=== PATIENT | female | born 1985 | race Caucasian/White ===

== ENCOUNTER 2018-05-11 03:29 | Observation (INO) ==
[2018-05-11] MEDS ORDERED: IOPAMIDOL 100 ML BOTTLE IV ONE (03:30)
[2018-05-11] MEDS ORDERED: 0.9 % SODIUM CHLORIDE 1,000 ML IV ONE ×3 (03:45→14:10)
[2018-05-11] MEDS ORDERED: ONDANSETRON 4 MG/2 ML VIAL IV ONE ×2 (03:46→09:32)
--- NOTE | 2018-05-11 04:10 | Emergency Department Note ---
Abdominal Pain HPI - General Chief Complaint: Abdominal Pain Stated Complaint: Nausea, Sharp abdominal pain Time Seen by Provider: 05/11/18 04:07 Source: patient Mode of arrival: ambulatory Limitations: no limitations - History of Present Illness HPI Narrative: 32-year-old female with nausea vomiting and diarrhea since 8 PM on Friday or about 8 hours now total. She is having cramps with that. She is having low- grade temperature elevation last 2 days as well-however she had a orthopedic surgery 5 days ago and she was instructed not to call it a fever last it reached over 100.4-her right arm is in a cast from the ganglion cyst removal. She thinks there was some dark red blood in her stool she does have a history of a hemorrhoid since her last that is intermittent. Symptoms came on after eating some stirfry dinner at home however her kids ate the same meal and no one else is sick. - Related Data Home Medications Medication Instructions Recorded Confirmed Aspirin [Lite Coat Aspirin] 325 mg PO DAILY 05/11/18 05/11/18 Allergies Allergy/AdvReac Type Severity Reaction Status Date / Time No Known Drug Allergies Allergy Verified 05/11/18 03:37 Review of Systems All systems ED: reviewed and negative except as stated. Abdominal Pain PMH - Past Medical History Attestation: Yes: The following information was validated with the patient. Medical history: Reports: other (Factor V Leiden) Surgical history ED: Reports: (X2), orthopedic, other (Ganglion cyst) , tonsillectomy - Social History Smoking status: Never smoker Physical Exam No acute distress resting. Normocephalic atraumatic. Conjunctive are clear sclerae nonicteric. No nasal discharge or congestion. Oropharynx pink and moist. Neck is supple without lymphadenopathy or thyromegaly. Heart is regular rate and rhythm no murmur. Lungs are clear to auscultation bilaterally without wheezes rales rhonchi or respiratory distress. Abdomen is soft flat diffusely tender. Exam of the rectum shows a small skin tag but no active hemorrhoid. Hemoccult negative no stool in the vault. no pedal edema. Alert and oriented She did have an episode of diarrhea so I looked in the toilet after she was done and there was a large amount of blood clots in watery stool Limitations: no limitations Course Vital Signs Temperature 98.4 F 05/11/18 03:30 Pulse Rate 82 05/11/18 03:30 Respiratory Rate 18 05/11/18 03:30 Blood Pressure 117/84 05/11/18 03:30 Pulse Oximetry (%) 100 05/11/18 03:30 Temperature 98.4 F 05/11/18 03:30 Pulse Rate 102 H 05/11/18 06:30 Respiratory Rate 18 05/11/18 03:30 Blood Pressure 112/76 05/11/18 08:29 Pulse Oximetry (%) 99 05/11/18 06:30 Abdominal Pain - Lab Data Lab results reviewed: Yes I reviewed the patient's lab results. Result diagrams: 05/11/18 03:45 05/11/18 03:45 Lab Results 05/11/18 05/11/18 Range/Units 03:45 03:45 WBC 12.0 H (4.5-11.0) K/mcL RBC 5.29 H (4.00-5.20) M/mcL Hgb 15.4 H (12.0-15.0) g/dL Hct 46.1 (36.0-48.0) % MCV 87.1 (80.0-100.0) fL MCH 29.1 (26.0-34.0) pg MCHC 33.4 (31.0-36.0) g/dL RDW 11.7 (11.5-14.5) % Plt Count 225 (140-440) K/mcL MPV 8.4 (7.4-10.4) fL Gran % 89.2 H (38.0-78.0) % Lymph % (Auto) 5.9 L (15.5-49.0) % [place] % (Auto) 4.1 (1.0-12.0) % Eos % (Auto) 0.6 (0.0-7.0) % Baso % (Auto) 0.2 (0.0-2.0) % Gran # 10.7 H (1.8-8.0) K/mcL Lymph # (Auto) 0.7 L (1.5-4.8) K/mcL [place] # (Auto) 0.5 (0.1-0.9) K/mcL Eos # (Auto) 0.1 (0.0-0.7) K/mcL Baso # (Auto) 0 (0.0-0.3) K/mcL Sodium 136 (133-145) mmol/L Potassium 4.0 (3.3-5.1) mmol/L Chloride 97 (96-108) mmol/L Carbon Dioxide 24 (22-30) mmol/L Anion Gap 15.0 (8-16) BUN 20 (6-20) mg/dl Creatinine 0.7 (0.6-1.1) mg/dl GFR Calculation 113 Glucose 137 H (70-105) mg/dL Calcium 9.6 (8.6-10.4) mg/dl Total Bilirubin 0.5 (0.0-1.0) mg/dL AST 24 (0-37) U/l ALT 35 (0-40) U/l Alkaline Phosphatase 68 (39-117) U/L Total Protein 8.3 (5.9-8.4) gm/dL Albumin 4.7 (3.2-5.2) gm/dL Globulin 3.6 (2.2-3.7) gm/dL Albumin/Globulin Ratio 1.3 (1.0-2.3) Lipase 31 (7-60) U/L - Radiology Data Radiology results reviewed: Yes I reviewed the patient's radiology results. Abdominal x-ray series showed no acute findings. Nonspecific bowel gas pattern CT scan of the abdomen pelvis is pending Disposition Pt seen by RECRUITER SPECIALIST/PA only: No Clinical Impression: Hematochezia, Gastroenteritis Summary: Initially was felt that she might have food poisoning versus gastroenteritis so supportive care was initiated with Zofran IV fluids and workup started with laboratory and 2 views of the abdomen Laboratory showed leukocytosis. No major electrolyte issues . abdominal x-ray showed nonspecific bowel gas pattern. Patient then had an episode of hematochezia here and so CT scan of abdomen pelvis angiogram is ordered Given Dilaudid for pain/cramping. She continued to have nausea so Phenergan is given but this did not help. Will give dose of Reglan Shift change came patient is checked out to Dr. Romero for further care and evaluation Disposition: Still a Patient Condition: Fair Referrals: Alberta Rubio MD [Primary Care Provider] -
[2018-05-11 05:01] LABS: ALT/SGPT 35 U/l (0-40); Albumin 4.7 gm/dL (3.2-5.2); Albumin/Globulin Ratio 1.3 (1.0-2.3); Alkaline Phosphatase 68 U/L (39-117); Blood Urea Nitrogen 20 mg/dl (6-20); Lipase 31 U/L (7-60)
[2018-05-11 06:01] LABS: Basophils # (Auto) 0 K/mcL (0.0-0.3); Basophils % (Auto) 0.2 % (0.0-2.0); Eosinophils # (Auto) 0.1 K/mcL (0.0-0.7); Eosinophils % (Auto) 0.6 % (0.0-7.0); Granulocytes % (Auto) 89.2 % (38.0-78.0); Lymphocytes # (Auto) 0.7 K/mcL (1.5-4.8); Lymphocytes % (Auto) 5.9 % (15.5-49.0); Mean Cell Volume 87.1 fL (80.0-100.0); Mean Corpuscular HGB Conc 33.4 g/dL (31.0-36.0); Mean Corpuscular Hemoglobin 29.1 pg (26.0-34.0); Monocytes # (Auto) 0.5 K/mcL (0.1-0.9); Monocytes % (Auto) 4.1 % (1.0-12.0); Platelet Count 225 K/mcL (140-440); RBC 5.29 M/mcL (4.00-5.20); Red Cell Distribution Width 11.7 % (11.5-14.5)
[2018-05-11] MEDS ORDERED: HYDROmorphone 2 MG/ML VIAL IV ONE ×2 (06:14→09:42)
--- NOTE | 2018-05-11 09:20 | Cat Scan Report ---
CLINICAL INFORMATION: Bloody stool COMPARISON: None. TECHNIQUE: Following enteric contrast, 80 cc of Isovue-300 were injected intravenously, and 20 and 60 seconds later, 0.625 mm helical slices were obtained from the mid heart through the subtrochanteric regions. Following reconstruction, 2.5 mm sagittal, coronal and axial reformatted images were processed and reviewed at bone, lung and soft tissue windows. Five minutes later, 0.625 mm helical slices were obtained from the mid heart through the kidneys and viewed at soft tissue windows.The exam was performed using radiation dose optimization techniques including, but not limited to, automated exposure control, adjustment of the mA and/or kV according to patient size and use of iterative reconstruction technique. FINDINGS: There is a small (16 mm) focus of concentrated slightly dilated distal arteries from proximal jejunal branches of the SMA (axial image 142 and coronal image 47). No evidence of extravasation on the delayed images. The remainder of the celiac SMA and DAYNA and all branches appear normal. The portal, SMV and IMV and all associated tributaries also appear unremarkable. Lung bases show no abnormality - no effusions. Visualized heart is normal. Images through the abdomen show the liver, both kidneys, adrenal glands, spleen, pancreas and aorta to be normal in size configuration and attenuation without focal lesion. No free air, free fluid or adenopathy. Stomach, small/large bowel are normal. Images through the pelvis show anteflexed uterus which is slightly enlarged: 9.8 x 2.6 cm. Both ovaries are normal. Urinary bladder is normal. Bone windows show no osseous abnormality. IMPRESSION: Subtle, small (16 mm) disease focus of increased vascularity involving the terminal branches of proximal jejunal branch off the SMA. The vessels do not appear irregular and there is no evidence of extravasation. It likely merely represents a collection of normal arteries which are simply very tightly congregated, rather than a focus of angiodysplasia. There is no evidence of extravasation to suggest that represents a source of GI blood loss. Interpreted and Authenticated by: Wiley Snyder 05/11/18
--- NOTE | 2018-05-11 09:30 | Emergency Department Note ---
Abdominal Pain HPI - General Chief Complaint: Abdominal Pain Stated Complaint: Nausea, Sharp abdominal pain Time Seen by Provider: 05/11/18 04:07 Source: patient Mode of arrival: ambulatory Limitations: no limitations - History of Present Illness HPI Narrative: See history and physical dictated by Dr. Tellez. I am following patient after shift change. - Related Data Home Medications Medication Instructions Recorded Confirmed Aspirin [Lite Coat Aspirin] 325 mg PO DAILY 05/11/18 05/11/18 Allergies Allergy/AdvReac Type Severity Reaction Status Date / Time No Known Drug Allergies Allergy Verified 05/11/18 03:37 Abdominal Pain PMH - Past Medical History Medical history: Reports: other (Factor V Leiden) - Social History Smoking status: Never smoker Physical Exam Limitations: no limitations Course Vital Signs Temperature 98.4 F 05/11/18 03:30 Pulse Rate 82 05/11/18 03:30 Respiratory Rate 18 05/11/18 03:30 Blood Pressure 117/84 05/11/18 03:30 Pulse Oximetry (%) 100 05/11/18 03:30 Temperature 97.9 F 05/12/18 03:13 Pulse Rate 70 05/12/18 03:13 Respiratory Rate 14 05/12/18 03:13 Blood Pressure 93/61 05/12/18 03:13 Pulse Oximetry (%) 97 05/12/18 03:13 Abdominal Pain - Lab Data Lab results reviewed: Yes I reviewed the patient's lab results. Result diagrams: 05/11/18 03:45 05/11/18 17:20 Lab Results 05/11/18 05/11/18 05/11/18 Range/Units 03:45 03:45 05:00 WBC 12.0 H (4.5-11.0) K/mcL RBC 5.29 H (4.00-5.20) M/mcL Hgb 15.4 H (12.0-15.0) g/dL Hct 46.1 (36.0-48.0) % POC Hct (36.0-48.0) % MCV 87.1 (80.0-100.0) fL MCH 29.1 (26.0-34.0) pg MCHC 33.4 (31.0-36.0) g/dL RDW 11.7 (11.5-14.5) % Plt Count 225 (140-440) K/mcL MPV 8.4 (7.4-10.4) fL Gran % 89.2 H (38.0-78.0) % Lymph % (Auto) 5.9 L (15.5-49.0) % [place] % (Auto) 4.1 (1.0-12.0) % Eos % (Auto) 0.6 (0.0-7.0) % Baso % (Auto) 0.2 (0.0-2.0) % Gran # 10.7 H (1.8-8.0) K/mcL Lymph # (Auto) 0.7 L (1.5-4.8) K/mcL [place] # (Auto) 0.5 (0.1-0.9) K/mcL Eos # (Auto) 0.1 (0.0-0.7) K/mcL Baso # (Auto) 0 (0.0-0.3) K/mcL POC Sodium (133-145) mmol/L Sodium 136 (133-145) mmol/L POC Potassium (3.3-5.1) mmol/L Potassium 4.0 (3.3-5.1) mmol/L POC Chloride (96-108) mmol/L Chloride 97 (96-108) mmol/L Carbon Dioxide 24 (22-30) mmol/L POC Total CO2 (22-30) mmol/L Anion Gap 15.0 (8-16) POC BUN (6-20) mg/dl BUN 20 (6-20) mg/dl Creatinine 0.7 (0.6-1.1) mg/dl POC Creatinine (0.6-1.1) mg/dl GFR Calculation 113 Glucose 137 H (70-105) mg/dL POC Glucose (70-105) mg/dL Calcium 9.6 (8.6-10.4) mg/dl POC WB Ioniz Calcium (1.16-1.32) mmol/L Total Bilirubin 0.5 (0.0-1.0) mg/dL AST 24 (0-37) U/l ALT 35 (0-40) U/l Alkaline Phosphatase 68 (39-117) U/L Total Protein 8.3 (5.9-8.4) gm/dL Albumin 4.7 (3.2-5.2) gm/dL Globulin 3.6 (2.2-3.7) gm/dL Albumin/Globulin Ratio 1.3 (1.0-2.3) Lipase 31 (7-60) U/L Urine HCG, Qual Negative <20 (<20 mIU/ml) Urine Opiates Screen (NONDETECTED) Ur Opiates Confirm Ur Oxycodone Screen (NONDETECTED) Urine Methadone Screen (NONDETECTED) Ur Methadone Confirm Ur Barbiturates Screen (NONDETECTED) Ur Barbiturate Confirm Ur Phencyclidine Scrn (NONDETECTED) Urine PCP Confirm Ur Amphetamines Screen (NONDETECTED) U Amphetamines Confirm U Benzodiazepines Scrn (NONDETECTED) U Benzodiazepine Confm Urine Cocaine Screen (NONDETECTED) Urine Cocaine Confirm U Cannabinoids Confirm U Marijuana (THC) Screen (NONDETECTED) 05/11/18 05/11/18 Range/Units 05:00 09:45 WBC (4.5-11.0) K/mcL RBC (4.00-5.20) M/mcL Hgb (12.0-15.0) g/dL Hct (36.0-48.0) % POC Hct 40.0 (36.0-48.0) % MCV (80.0-100.0) fL MCH (26.0-34.0) pg MCHC (31.0-36.0) g/dL RDW (11.5-14.5) % Plt Count (140-440) K/mcL MPV (7.4-10.4) fL Gran % (38.0-78.0) % Lymph % (Auto) (15.5-49.0) % [place] % (Auto) (1.0-12.0) % Eos % (Auto) (0.0-7.0) % Baso % (Auto) (0.0-2.0) % Gran # (1.8-8.0) K/mcL Lymph # (Auto) (1.5-4.8) K/mcL [place] # (Auto) (0.1-0.9) K/mcL Eos # (Auto) (0.0-0.7) K/mcL Baso # (Auto) (0.0-0.3) K/mcL POC Sodium 139 (133-145) mmol/L Sodium (133-145) mmol/L POC Potassium 3.7 (3.3-5.1) mmol/L Potassium (3.3-5.1) mmol/L POC Chloride 102 (96-108) mmol/L Chloride (96-108) mmol/L Carbon Dioxide (22-30) mmol/L POC Total CO2 23 (22-30) mmol/L Anion Gap (8-16) POC BUN 11 (6-20) mg/dl BUN (6-20) mg/dl Creatinine (0.6-1.1) mg/dl POC Creatinine 0.5 L (0.6-1.1) mg/dl GFR Calculation Glucose (70-105) mg/dL POC Glucose 106 H (70-105) mg/dL Calcium (8.6-10.4) mg/dl POC WB Ioniz Calcium 1.11 L (1.16-1.32) mmol/L Total Bilirubin (0.0-1.0) mg/dL AST (0-37) U/l ALT (0-40) U/l Alkaline Phosphatase (39-117) U/L Total Protein (5.9-8.4) gm/dL Albumin (3.2-5.2) gm/dL Globulin (2.2-3.7) gm/dL Albumin/Globulin Ratio (1.0-2.3) Lipase (7-60) U/L Urine HCG, Qual (<20 mIU/ml) Urine Opiates Screen None detected (NONDETECTED) Ur Opiates Confirm Not Reportable Ur Oxycodone Screen None detected (NONDETECTED) Urine Methadone Screen None detected (NONDETECTED) Ur Methadone Confirm Not Reportable Ur Barbiturates Screen None detected (NONDETECTED) Ur Barbiturate Confirm Not Reportable Ur Phencyclidine Scrn None detected (NONDETECTED) Urine PCP Confirm Not Reportable Ur Amphetamines Screen None detected (NONDETECTED) U Amphetamines Confirm Not Reportable U Benzodiazepines Scrn None detected (NONDETECTED) U Benzodiazepine Confm Not Reportable Urine Cocaine Screen None detected (NONDETECTED) Urine Cocaine Confirm Not Reportable U Cannabinoids Confirm Not Reportable U Marijuana (THC) Screen None detected (NONDETECTED) - Radiology Data Radiology results reviewed: Yes I reviewed the patient's radiology results. Disposition Pt seen by SUPERVISOR COMMUNICATIONS AND SIGNALS/PA only: No Clinical Impression: Nausea vomiting and diarrhea GI (gastrointestinal bleed) Qualifiers: GI bleed type/associated pathology: melena Qualified Code(s): K92.1 - Melena Summary: Patient continued to have significant nausea and vomiting and crampy lower abdominal pain. No further episode of blood but did have a diarrheal pure liquid stool. She reports 10-15 times of vomiting before coming and multiple episodes of diarrhea as well. She was given a second liter of fluids. I spoke briefly with Dr. Kern, hospitalist, regarding her and possibilities of needing admission for additional treatment and control of her nausea and vomiting and pain. Because of GI bleed, may warrant additional monitoring inpatient. \ ADDED: Before taken to the floor she did have an additional watery melanotic stool, small amount. Disposition: Xfer As Outpt/Obs ([facility]) Condition: Fair
--- NOTE | 2018-05-11 10:11 | XRay Report ---
CLINICAL INFORMATION: Nausea and vomiting COMPARISON: None. FINDINGS: The stool gas pattern is unremarkable. There is no free air, soft tissue mass, organomegaly or pathologic calcification. IMPRESSION: Normal abdomen Interpreted and Authenticated by: Wiley Snyder 05/11/18
[2018-05-11] MEDS ORDERED: DICYCLOMINE 10 MG/ML IM ONE (11:58)
[2018-05-11] MEDS ORDERED: DICYCLOMINE 20 MG TABLET PO ONE (12:53)
[2018-05-11] MEDS ORDERED: DICYCLOMINE 10 MG CAPSULE PO ONE ×2 (12:54→13:01)
--- NOTE | 2018-05-11 14:55 | Internal Med History&Physical ---
<Pilo Naranjo - Last Filed: 05/11/18 14:51> Medical - H&P: HPI Patient information: Note initiated : 05/11/18 at 2:51 pm Service Date, if different from initiated Date: [] Patient: Lucretia aBron a 32 y/o F admitted on for Nausea, Sharp Abdominal Pain. Chief Complaint: [] Chief complaint: Severely painful cramping since 8PM History of present illness: Ms. Baron is a 32 year old F presents with severe, "contraction-like" 7-8 pain of the lower abdomen since 8pm last night. Pain is worsened with movement and does not radiate. Pain describes nausea d/t the pain. Reports hematochezia, n/v, fever, chills and night sweats since last night. Pt denies hematemesis or biliary emesis. - Constitutional Constitutional: Present: chills, fever(s), night sweats Additional comments: started last night - EENT Eyes: Absent: blurry vision, loss of vision Ears: Absent: tinnitus Nose, mouth and throat: Absent: neck pain, sore throat - Cardiovascular Cardiovascular: Absent: chest pain, dyspnea, palpatations, pedal edema Additional comments: RRR, no m/r/g - Respiratory Respiratory: Absent: cough - Gastrointestinal Gastrointestinal: Present: abdominal pain, cramping, hematochezia, nausea, vomiting. Absent: hematemesis - Genitourinary Genitourinary: Absent: change in urinary stream, difficulty urinating, difficulty voiding - Musculoskeletal Musculoskeletal: Absent: arthralgias, joint swelling, muscle weakness, myalgias , neck pain, numbness, tingling - Neurological Neurological: Present: headache(s). Absent: abnormal hearing, numbness Additional comments: headaches d/t seasonal changes Medical - H&P: PMH Medical history: Hep A @ 8 years old Factor V Leiden leading to still 2012 Mastitis 2013 Surgical history: Tonsillectomy 2001 2013, 2017 Ganglion cyst of rt hand removed last week Medical - H&P: Meds Home Medications Medication Instructions Recorded Confirmed Type Aspirin [Lite Coat Aspirin] 325 mg PO DAILY 05/11/18 05/11/18 History Allergies Allergy/AdvReac Type Severity Reaction Status Date / Time No Known Drug Allergies Allergy Verified 05/11/18 03:37 Medical - H&P: Exam - Constitutional Vitals: Temp Pulse Resp BP Pulse Ox 98.4 F 53 L 18 115/78 98 05/11/18 03:30 05/11/18 11:45 05/11/18 03:30 05/11/18 13:45 05/11/18 11:45 General appearance: no acute distress Exam: very fatigued - Head Head exam: Present: atraumatic - Eye Eye exam: Present: normal appearance, PERRL - ENT ENT exam: Present: mucous membranes moist - Neck Neck exam: Present: normal inspection. Absent: lymphadenopathy, tenderness - Respiratory Respiratory exam: Present: CTAB - Cardiovascular Cardiovascular exam: Present: RRR. Absent: gallop, rubs, systolic murmur - GI/Abdominal GI/Abdominal exam: Present: soft, hypoactive bowel sounds. Absent: guarding, rebound - Expanded GI/Abdominal Exam GI/Abdominal exam: Absent: Landa's sign, tenderness at McBurney's Point - Extremities Exam Extremities exam: Absent: pedal edema Additional comments: 4/5 muscle strength in upper and lower extremities Medical - H&P: Reslt - Labs CBC & Chem 7: 05/11/18 03:45 05/11/18 03:45 Labs: Short CBC 05/11/18 Range/Units 03:45 WBC 12.0 H (4.5-11.0) K/mcL Hgb 15.4 H (12.0-15.0) g/dL Hct 46.1 (36.0-48.0) % Plt Count 225 (140-440) K/mcL BMP 05/11/18 03:45 Sodium 136 Potassium 4.0 Chloride 97 Carbon Dioxide 24 BUN 20 Creatinine 0.7 Glucose 137 H Calcium 9.6 Liver Function 05/11/18 Range/Units 03:45 Total Bilirubin 0.5 (0.0-1.0) mg/dL AST 24 (0-37) U/l ALT 35 (0-40) U/l Alkaline Phosphatase 68 (39-117) U/L Albumin 4.7 (3.2-5.2) gm/dL <Sebastian Kern - Last Filed: 05/11/18 16:42> Medical - H&P: HPI Patient information: Note initiated : 05/11/18 at 4:30 pm Service Date, if different from initiated Date: [] Patient: Lucretia Baron a 32 y/o F admitted on 05/11/18 for Nausea, Sharp Abdominal Pain. Chief Complaint: [] History of present illness: Ms. Baron is a 32 year old F she has diarrhea few times and one bloody one here. 3 year old and 1 year old at home no diarrhea. Concerns because factor 5 leiden deficiency. one clot in umbilcal vein caused stillbirth 2012. 2 live C section births 2013 and 2016 treated with lovenox Medical - H&P: PMH Family history: reviewed and not pertinent (doc says one parent should have Factor V leiden deficiency but not tested.) Functional capacity: independent ambulation Have you smoked in the last 12 months: No Drug use: none Alcohol use: none Medical - H&P: Exam - Constitutional Vitals: Temp Pulse Resp BP Pulse Ox 98.4 F 65 20 116/74 98 05/11/18 03:30 05/11/18 15:39 05/11/18 15:39 05/11/18 15:39 05/11/18 15:39 Medical - H&P: Reslt - Labs CBC & Chem 7: 05/11/18 03:45 05/11/18 03:45 Labs: Short CBC 05/11/18 Range/Units 03:45 WBC 12.0 H (4.5-11.0) K/mcL Hgb 15.4 H (12.0-15.0) g/dL Hct 46.1 (36.0-48.0) % Plt Count 225 (140-440) K/mcL BMP 05/11/18 03:45 Sodium 136 Potassium 4.0 Chloride 97 Carbon Dioxide 24 BUN 20 Creatinine 0.7 Glucose 137 H Calcium 9.6 Liver Function 05/11/18 Range/Units 03:45 Total Bilirubin 0.5 (0.0-1.0) mg/dL AST 24 (0-37) U/l ALT 35 (0-40) U/l Alkaline Phosphatase 68 (39-117) U/L Albumin 4.7 (3.2-5.2) gm/dL Medical - H&P: A/P (1) Nausea vomiting and diarrhea Current visit: Yes Status: Acute SMA, DAYNA and Celiac with good patency by CTA abdomen. Factor V disease concerning for clotting but if ischemic bowel is etiology would expect to see some clot in one of those vessels at least and some bowel edema. Viral or food poisoning bacteria (toxin) is most likely cause. treat with additional hydration and symptom control. will give lovenox for now also. (2) GI (gastrointestinal bleed) Problem details: likely due to copious infectious diarrhea. Current visit: Yes Status: Acute hydrate and follow. - Narrative A/P Narrative: 70 mins spent in evaluation and coordination of care for this patient between med student Marcella and myself and discussion with pt and EMD staff and Group Art Supervisor.
[2018-05-11 15:30] LABS: Amphetamine Screen,Urine NONE DETECTED (NONDETECTED); Benzodiazepines Screen,Urine NONE DETECTED (NONDETECTED); Cocaine Screen,Urine NONE DETECTED (NONDETECTED); Opiate Screen,Urine NONE DETECTED (NONDETECTED); Oxycodone, Urine Screen NONE DETECTED (NONDETECTED)
[2018-05-11] MEDS ORDERED: LACTATED RINGERS 1,000 ML IV ONE ×2 (16:07→16:27)
[2018-05-11] MEDS ORDERED: DEXTROSE 5%-LR W/20MEQ KCL 1,000 ML IV SCH (16:15)
[2018-05-11] MEDS ORDERED: ENOXAPARIN 40 MG/0.4 ML SYRINGE SQ SCH (16:27)
[2018-05-11] MEDS: ACETAMINOPHEN 325 MG TABLET PO PRN (16:50)
[2018-05-11 18:17] LABS: ALT/SGPT 22 U/l (0-40); Albumin 3.8 gm/dL (3.2-5.2); Albumin/Globulin Ratio 1.7 (1.0-2.3); Alkaline Phosphatase 53 U/L (39-117); Bilirubin,Direct < 0.2 mg/dL (0.0-0.3); Blood Urea Nitrogen 8 mg/dl (6-20); C-Reactive Protein 0.3 mg/dl (0.0-0.8); Gamma Glutamyl Transpeptidase 35 U/L (5-36); Uric Acid 1.9 mg/dL (2.5-8.0)
[2018-05-11] MEDS ORDERED: ONDANSETRON 4 MG/2 ML VIAL IV PRN (18:32)
[2018-05-11] MEDS: DEXTROSE 5%-LR W/20MEQ KCL 1,000 ML IV SCH (18:46)
[2018-05-12] MEDS: 0.9 % SODIUM CHLORIDE 10 ML SYRINGE IV SCH ×4 (00:39→20:57)
[2018-05-12] MEDS: DEXTROSE 5%-LR W/20MEQ KCL 1,000 ML IV SCH ×3 (02:21→20:52)
[2018-05-12] MEDS: ENOXAPARIN 40 MG/0.4 ML SYRINGE SQ SCH (08:08)
[2018-05-12] MEDS: ASPIRIN 325 MG ENTERIC COATED TABLET PO SCH (08:09)
[2018-05-12] MEDS ORDERED: ASPIRIN 325 MG ENTERIC COATED TABLET PO SCH (09:00)
--- NOTE | 2018-05-12 11:03 | Internal Med Progress Note ---
<Pilo Naranjo - Last Filed: 05/12/18 11:27> Medical - PN: Subj Patient information: Note initiated : 05/12/18 at 11:00 am Service Date, if different from initiated Date: [] Patient: Lucretia Baron 32 y/o F admitted on 05/11/18 for Nausea, Sharp Abdominal Pain. Chief Complaint: [] Interval history: pt reports improvement in abdominal pain, now 3-4/10, especially before defecation. Also reports presyncope upon sitting up or standing, most likely d/ t low BP. Passed another large clot in stool morning of 05/12/18. Also reports mild back pain. Pt wants to eat normal food. Also reports that mother has IBS. - Constitutional Vitals: Vital Signs Temp Pulse Resp BP Pulse Ox 97.7 F 61 15 100/65 97 05/12/18 07:13 05/12/18 07:13 05/12/18 07:13 05/12/18 07:13 05/12/18 07:13 Period Temp Pulse Resp BP Sys/Weiner Pulse Ox Last 24 Hr 97 F-97.9 F 53-74 14-20 93-119/61-84 96-100 Intake and Output 05/11/18 05/12/18 05/12/18 21:59 05:59 13:59 Intake Total 1000 / 1000 1148 / 1148 958 / 958 Output Total 400 / 400 2950 / 2950 Balance 1000 / 1000 748 / 748 -1991 Weight 106 lb 8 oz Intake & Output: Intake & Output 05/11/18 05/12/18 05/12/18 21:59 05:59 13:59 Intake Total 1000 / 1000 1148 / 1148 958 / 958 Output Total 400 / 400 2950 / 2950 Balance 1000 / 1000 748 / 748 -1991 Weight 106 lb 8 oz Intake: IV 1000 / 1000 948 / 948 958 / 958 Sodium Chloride 0.9% 1,000 ml @ 1000 / 1000 Wide Open IV BOLUS ONE Rx#: [id number] Dextrose 5%-Lr W/20Meq KCl 1, 948 / 948 958 / 958 000 ml @ 125 mls/hr IV .Q8H [facility] Rx#:[id number] Oral 200 / 200 Output: Void Amount 400 / 400 2950 / 2950 Other: Urine Appearance Clear Clear Urine Color Straw Straw Urine Odor Normal Normal Stool Color Dark Red Blood Stool Consistency Liquid # Voids 2 - Respiratory Respiratory exam: Present: normal respiratory exam, CTAB. Absent: decreased breath sounds, respiratory distress - Cardiovascular Cardiovascular exam: Present: normal rate and rhythm, RRR. Absent: bradycardia , tachycardia - GI/Abdominal GI/Abdominal exam: Present: soft, hyperactive bowel sounds, rebound, tenderness (LLQ with rebound) - Extremities Exam Extremities exam: Absent: pedal edema, tenderness Medical - PN: Obj Da - Labs CBC & Chem 7: 05/11/18 03:45 05/11/18 17:20 Labs: Abnormal Lab Results 05/11/18 05/11/18 05/11/18 17:20 17:20 09:45 WBC RBC Hgb Gran % Lymph % (Auto) Gran # Lymph # (Auto) VBG Lactic Acid < 0.2 L Chloride 109 H POC Creatinine 0.5 L Glucose POC Glucose 106 H Uric Acid 1.9 L Calcium 7.9 L POC WB Ioniz Calcium 1.11 L Phosphorus 2.6 L 05/11/18 05/11/18 03:45 03:45 WBC 12.0 H RBC 5.29 H Hgb 15.4 H Gran % 89.2 H Lymph % (Auto) 5.9 L Gran # 10.7 H Lymph # (Auto) 0.7 L VBG Lactic Acid Chloride POC Creatinine Glucose 137 H POC Glucose Uric Acid Calcium POC WB Ioniz Calcium Phosphorus Meds: Medications Acetaminophen (Tylenol) 650 mg PO Q6HP PRN PRN Reason: PAIN/FEVER > 101 Last Admin: 05/11/18 16:50 Dose: 650 mg Aspirin (Ecotrin) 325 mg PO DAILY [facility] Last Admin: 05/12/18 08:09 Dose: 325 mg Enoxaparin Sodium (Lovenox) 40 mg SQ DAILY [facility] Last Admin: 05/12/18 08:08 Dose: 40 mg Potassium Cl/Dextrose/Lact Ringer's (Dextrose 5%-Lr W/20meq Kcl) 1,000 mls @ 125 mls/hr IV .Q8H [facility] Last Admin: 05/12/18 10:01 Dose: 125 mls/hr Morphine Sulfate (Morphine) 2 mg IV Q4HP PRN PRN Reason: PAIN LEVEL > 6 Ondansetron HCl (Zofran) 4 mg IV Q4HP PRN PRN Reason: Nausea And Vomiting Sodium Chloride (Saline Flush) 10 ml IV Q8 [facility] Last Admin: 05/12/18 06:10 Dose: Not Given Medical - PN: A/P - Time Spent With Patient Total time spent is greater than 50% in coordination of care (as documented) at patient's floor/unit and/or counseling patient: Greater than 35 minutes (1) Nausea vomiting and diarrhea Status: Resolved Assessment and plan: Pt receiving IV fluids and eating clear. Will continue with fluids and advance diet to normal. Current Visit: Yes (2) GI (gastrointestinal bleed) Problem details: likely due to copious infectious diarrhea. Status: Resolved Assessment and plan: Pt passed bloody, clotted stool this morning. Most likely an old clot from the acute infection that is just now passing. Continue with fluids Current Visit: Yes Medical - PN: Qual - Stroke Symptom Onset Unknown: No - VTE Deep Vein Thrombosis/Pulmonary Embolism Present on Admission: No <Sebastian Kern - Last Filed: 05/12/18 12:30> Medical - PN: Subj Patient information: Note initiated : 05/12/18 at 12:28 pm Service Date, if different from initiated Date: [] Patient: Lucretia Baron 32 y/o F admitted on 05/11/18 for Nausea, Sharp Abdominal Pain/GI Bleed. Chief Complaint: [] Pertinent ROS: no fever - Constitutional Vitals: Vital Signs Temp Pulse Resp BP Pulse Ox 98.3 F 63 15 102/64 97 05/12/18 12:00 05/12/18 12:00 05/12/18 12:00 05/12/18 12:00 05/12/18 12:00 Period Temp Pulse Resp BP Sys/Weiner Pulse Ox Last 24 Hr 97 F-98.3 F 61-70 14-20 93-119/61-84 96-100 Intake and Output 05/11/18 05/12/18 05/12/18 21:59 05:59 13:59 Intake Total 1000 / 1000 1148 / 1148 1408 / 1408 Output Total 400 / 400 3550 / 3550 Balance 1000 / 1000 748 / 748 -2142 / -2142 Weight 106 lb 8 oz Intake & Output: Intake & Output 05/11/18 05/12/18 05/12/18 21:59 05:59 13:59 Intake Total 1000 / 1000 1148 / 1148 1408 / 1408 Output Total 400 / 400 3550 / 3550 Balance 1000 / 1000 748 / 748 -2142 / -2142 Weight 106 lb 8 oz Intake: IV 1000 / 1000 948 / 948 958 / 958 Sodium Chloride 0.9% 1,000 ml @ 1000 / 1000 Wide Open IV BOLUS ONE Rx#: [id number] Dextrose 5%-Lr W/20Meq KCl 1, 948 / 948 958 / 958 000 ml @ 125 mls/hr IV .Q8H [facility] Rx#:[id number] Oral 200 / 200 450 / 450 Output: Void Amount 400 / 400 3550 / 3550 Other: Meal Breakfast Percent of Meal Consumed 75% Urine Appearance Clear Clear Urine Color Straw Straw Urine Odor Normal Normal Stool Color Dark Red Blood Stool Consistency Liquid # Voids 2 - GI/Abdominal GI/Abdominal exam: Absent: distended, firm, guarding, rebound - Psychiatric Psychiatric exam: Present: normal affect - Skin Skin exam: Present: dry, warm Medical - PN: Obj Da - Labs CBC & Chem 7: 05/11/18 03:45 05/11/18 17:20 Labs: Abnormal Lab Results 05/11/18 05/11/18 05/11/18 17:20 17:20 09:45 WBC RBC Hgb Gran % Lymph % (Auto) Gran # Lymph # (Auto) VBG Lactic Acid < 0.2 L Chloride 109 H POC Creatinine 0.5 L Glucose POC Glucose 106 H Uric Acid 1.9 L Calcium 7.9 L POC WB Ioniz Calcium 1.11 L Phosphorus 2.6 L 05/11/18 05/11/18 03:45 03:45 WBC 12.0 H RBC 5.29 H Hgb 15.4 H Gran % 89.2 H Lymph % (Auto) 5.9 L Gran # 10.7 H Lymph # (Auto) 0.7 L VBG Lactic Acid Chloride POC Creatinine Glucose 137 H POC Glucose Uric Acid Calcium POC WB Ioniz Calcium Phosphorus Meds: Medications Acetaminophen (Tylenol) 650 mg PO Q6HP PRN PRN Reason: PAIN/FEVER > 101 Last Admin: 05/12/18 11:54 Dose: 650 mg Aspirin (Ecotrin) 325 mg PO DAILY [facility] Last Admin: 05/12/18 08:09 Dose: 325 mg Enoxaparin Sodium (Lovenox) 40 mg SQ DAILY [facility] Last Admin: 05/12/18 08:08 Dose: 40 mg Potassium Cl/Dextrose/Lact Ringer's (Dextrose 5%-Lr W/20meq Kcl) 1,000 mls @ 125 mls/hr IV .Q8H [facility] Last Admin: 05/12/18 10:01 Dose: 125 mls/hr Morphine Sulfate (Morphine) 2 mg IV Q4HP PRN PRN Reason: PAIN LEVEL > 6 Ondansetron HCl (Zofran) 4 mg IV Q4HP PRN PRN Reason: Nausea And Vomiting Sodium Chloride (Saline Flush) 10 ml IV Q8 [facility] Last Admin: 05/12/18 06:10 Dose: Not Given Medical - PN: A/P - Time Spent With Patient Total time spent is greater than 50% in coordination of care (as documented) at patient's floor/unit and/or counseling patient: (1) Nausea vomiting and diarrhea Status: Resolved Current Visit: Yes (2) GI (gastrointestinal bleed) Problem details: likely due to copious infectious diarrhea. Status: Resolved Current Visit: Yes - Narrative A/P Narrative: Pt seen and examined independently from LANETTE Naranjo. concur with assessment and plan. will bolus 2 liters LR. advance diet. reevaluate in the am
[2018-05-12] MEDS: ACETAMINOPHEN 325 MG TABLET PO PRN (11:54)
[2018-05-12] MEDS ORDERED: LACTATED RINGERS 2,000 ML IV ONE (17:29)
[2018-05-12] MEDS ORDERED: POTASSIUM PHOSPHATE 20 MEQ in DEXTROSE 5% IN WATER 250 ML IV ONE (18:00)
[2018-05-13] MEDS: 0.9 % SODIUM CHLORIDE 10 ML SYRINGE IV SCH (04:41)
[2018-05-13] MEDS: DEXTROSE 5%-LR W/20MEQ KCL 1,000 ML IV SCH ×2 (04:43→07:51)
[2018-05-13] MEDS ORDERED: POTASSIUM CHLORIDE 20 MEQ/10 ML VIAL IV ONE (04:44)
[2018-05-13 06:25] LABS: Blood Urea Nitrogen 5 mg/dl (6-20)
[2018-05-13 06:50] LABS: Basophils # (Auto) 0 K/mcL (0.0-0.3); Basophils % (Auto) 0.8 % (0.0-2.0); Eosinophils # (Auto) 0.1 K/mcL (0.0-0.7); Eosinophils % (Auto) 2.2 % (0.0-7.0); Granulocytes % (Auto) 56.2 % (38.0-78.0); Lymphocytes # (Auto) 1.8 K/mcL (1.5-4.8); Lymphocytes % (Auto) 33.5 % (15.5-49.0); Mean Cell Volume 88.1 fL (80.0-100.0); Mean Corpuscular HGB Conc 34.5 g/dL (31.0-36.0); Mean Corpuscular Hemoglobin 30.4 pg (26.0-34.0); Monocytes # (Auto) 0.4 K/mcL (0.1-0.9); Monocytes % (Auto) 7.3 % (1.0-12.0); Platelet Count 205 K/mcL (140-440); RBC 4.36 M/mcL (4.00-5.20); Red Cell Distribution Width 11.6 % (11.5-14.5)
[2018-05-13] MEDS: ASPIRIN 325 MG ENTERIC COATED TABLET PO SCH (08:07)
[2018-05-13] MEDS: ENOXAPARIN 40 MG/0.4 ML SYRINGE SQ SCH (08:07)
--- NOTE | 2018-05-13 10:35 | Discharge Summary ---
<MarcellaPilo - Last Filed: 05/13/18 10:32> Medical - DS: Prov Patient information: Note initiated : 05/13/18 at 10:33 am Service Date, if different from initiated Date: [] Patient: Lucretia Baron 32 y/o F admitted on 05/11/18 for Nausea, Sharp Abdominal Pain/GI Bleed. Chief Complaint: [] Date of admission: 05/11/18 16:05 Discharge date: 05/13/18 Primary care physician: Alberta Rubio Admitting clinician: Sebastian Kern Attending physician on admission: Sebastian Kern Consults: 05/11/18 Consult to Physician [CONS] Stat Comment: Consulting Provider: Sebastian Kern Reason For Exam: Physician to Consult Attending physician on discharge: Sebastian Kern Discharging clinician: eSbastian Kern Medical - DS: Meds - Discharge Medications Active and Home Medications: Home Medications Aspirin [Lite Coat Aspirin] 325 mg PO DAILY 05/11/18 [History Confirmed Last Taken 05/10/18 09:00] Medical - DS: Hosp Hospital course: Mr. Baron is a 32 year old F Admitting for severe abdominal pain, vomiting and diarrhea. Given IV fluids and imaged for ischemic colitis, which was r/o per radiology. Diagnosed with acute food poisoning. History of factor V Lieden, given Lovenox during hospital stay. Will follow up with PCP for further anticoagulation if necessary. All symptoms improved on IV fluids. Able to eat normal diet w/o difficulty. Discharge diagnosis: Acute gastroenteritis Reason for admission: Hematemsis, N/V, Abd pain Complications: none - Time Spent with Patient Total time spent providing and/or coordinating discharge services: Greater than 30 minutes Medical - DS: Exam - Constitutional Vitals: Vital Signs Temp Pulse Resp BP Pulse Ox 05/13/18 07:27 98.3 F 20 115/66 98 05/13/18 04:00 97.6 F 62 12 101/63 97 05/13/18 00:00 97.8 F 64 12 104/66 97 05/12/18 20:00 97.9 F 66 12 115/79 98 05/12/18 15:45 98.1 F 72 16 104/67 97 05/12/18 12:00 98.3 F 63 15 102/64 97 Intake and Output 1005/13/18 05/13/18 21:59 05:59 13:59 Intake Total 1440 / 1440 1041 / 1041 450 / 450 Output Total 2575 / 2575 1050 / 1050 1650 / 1650 Balance -1135 / -1135 -9 / -9 -1200 / -1200 Intake: IV 1000 / 1000 981 / 981 Dextrose 5%-Lr W/20Meq KCl 1, 1000 / 1000 981 / 981 000 ml @ 125 mls/hr IV .Q8H [facility] Rx#:[id number] Oral 440 / 440 60 / 60 450 / 450 Output: Void Amount 2575 / 2575 1050 / 1050 1650 / 1650 Other: Meal Dinner Breakfast Percent of Meal Consumed 75% 50% Feeding Ability Independent Urine Appearance Clear Clear Clear Urine Color Straw Pale Pale Urine Odor Normal Normal Normal Stool Size Small Stool Color Brown Blood Tinged Stool Consistency Soft # Voids 1 Weight 103 lb 12.8 oz - Respiratory Respiratory exam: Present: normal respiratory exam, CTAB. Absent: respiratory distress - Cardiovascular Cardiovascular exam: Present: normal rate and rhythm, RRR. Absent: gallop, rubs , systolic murmur - GI/Abdominal GI/Abdominal exam: Present: normal bowel sounds, soft. Absent: guarding, rebound, tenderness - Skin Skin exam: Present: dry, warm Medical - DS: Data Labs on day of discharge: Labs from last 24 hours 05/13/18 05/13/18 04:20 04:20 WBC 5.5 RBC 4.36 Hgb 13.3 Hct 38.4 MCV 88.1 MCH 30.4 MCHC 34.5 RDW 11.6 Plt Count 205 MPV 8.0 Gran % 56.2 Lymph % (Auto) 33.5 [place] % (Auto) 7.3 Eos % (Auto) 2.2 Baso % (Auto) 0.8 Gran # 3.2 Lymph # (Auto) 1.8 [place] # (Auto) 0.4 Eos # (Auto) 0.1 Baso # (Auto) 0 Sodium 142 Potassium 3.9 Chloride 106 Carbon Dioxide 25 Anion Gap 11.0 BUN 5 L Creatinine 0.7 GFR Calculation 113 Glucose 104 Calcium 9.2 Preliminary micro results at discharge 05/11/18 14:54 Stool Culture - Preliminary Stool Medical - DS: A/P - Patient/Caregiver Discharge Instructions Diet: Regular Diet - Problem Maintenance (1) Nausea vomiting and diarrhea Status: Resolved (2) GI (gastrointestinal bleed) Status: Resolved Comment: likely due to copious infectious diarrhea. Qualifiers: GI bleed type/associated pathology: gastroduodenitis Qualified Code(s): K29.91 - Gastroduodenitis, unspecified, with bleeding - Follow up Plan Follow up with: Alberta Rubio MD [Primary Care Provider] - Disposition: Home, Self-Care Prognosis: Good Rehab Potential: Good I certify that the patient requires SNF services: No Overall status at discharge: patient is back to baseline Medical - DS: Qual - VTE Deep Vein Thrombosis/Pulmonary Embolism Present on Admission: No <Sebastian Kern - Last Filed: 05/13/18 11:15> Medical - DS: Prov Patient information: Note initiated : 05/13/18 at 11:04 am Service Date, if different from initiated Date: [] Patient: Lucretia Baron 32 y/o F admitted on 05/11/18 for Nausea, Sharp Abdominal Pain/GI Bleed. Chief Complaint: [] Date of admission: 05/11/18 16:05 Primary care physician: Alberta Rubio Consults: 05/11/18 Consult to Physician [CONS] Stat Comment: Consulting Provider: Sebastian Kern Reason For Exam: Physician to Consult Medical - DS: Meds - Discharge Medications Active and Home Medications: Home Medications Aspirin [Lite Coat Aspirin] 325 mg PO DAILY 05/11/18 [History Confirmed Last Taken 05/10/18 09:00] Medical - DS: Hosp Hospital course: pts course consistent with self limited illness. resume diet progressively. If recurrent diarrhea in near future consider colonoscopy but not recommended at this time. - Time Spent with Patient Total time spent providing and/or coordinating discharge services: Medical - DS: Exam - Constitutional Vitals: Vital Signs Temp Pulse Resp BP Pulse Ox 05/13/18 07:27 98.3 F 20 115/66 98 05/13/18 04:00 97.6 F 62 12 101/63 97 05/13/18 00:00 97.8 F 64 12 104/66 97 05/12/18 20:00 97.9 F 66 12 115/79 98 05/12/18 15:45 98.1 F 72 16 104/67 97 05/12/18 12:00 98.3 F 63 15 102/64 97 Intake and Output 05/12/18 05/13/18 05/13/18 21:59 05:59 13:59 Intake Total 1440 / 1440 1041 / 1041 450 / 450 Output Total 2575 / 2575 1050 / 1050 2049 Balance -1135 / -1135 -9 / -9 -1600 / -1600 Intake: IV 1000 / 1000 981 / 981 Dextrose 5%-Lr W/20Meq KCl 1, 1000 / 1000 981 / 981 000 ml @ 125 mls/hr IV .Q8H [facility] Rx#:[id number] Oral 440 / 440 60 / 60 450 / 450 Output: Void Amount 2575 / 2575 1050 / 1050 2049 Other: Meal Dinner Breakfast Percent of Meal Consumed 75% 50% Feeding Ability Independent Urine Appearance Clear Clear Clear Urine Color Straw Pale Pale Urine Odor Normal Normal Normal Stool Size Small Stool Color Brown Blood Tinged Stool Consistency Soft # Voids 1 Weight 103 lb 12.8 oz Medical - DS: Data Labs on day of discharge: Labs from last 24 hours 05/13/18 05/13/18 04:20 04:20 WBC 5.5 RBC 4.36 Hgb 13.3 Hct 38.4 MCV 88.1 MCH 30.4 MCHC 34.5 RDW 11.6 Plt Count 205 MPV 8.0 Gran % 56.2 Lymph % (Auto) 33.5 [place] % (Auto) 7.3 Eos % (Auto) 2.2 Baso % (Auto) 0.8 Gran # 3.2 Lymph # (Auto) 1.8 [place] # (Auto) 0.4 Eos # (Auto) 0.1 Baso # (Auto) 0 Sodium 142 Potassium 3.9 Chloride 106 Carbon Dioxide 25 Anion Gap 11.0 BUN 5 L Creatinine 0.7 GFR Calculation 113 Glucose 104 Calcium 9.2 Preliminary micro results at discharge 05/11/18 14:54 Stool Culture - Preliminary Stool Medical - DS: A/P - Patient/Caregiver Discharge Instructions Activity: resume usual activities as tolerated - Problem Maintenance (1) Nausea vomiting and diarrhea Status: Resolved Comment: viral or food poisoning etiology assumed. CTA mesentery negative for clot (2) GI (gastrointestinal bleed) Status: Resolved Comment: likely due to copious infectious diarrhea. resolving progressively. hold asa for 3 days Qualifiers: GI bleed type/associated pathology: gastroduodenitis Qualified Code(s): K29.91 - Gastroduodenitis, unspecified, with bleeding (3) Factor V Leiden Status: Acute Comment: hx of umbilical vein clot with miscarriage at 8.5 months gestation once. Then two live births with lovenox during . BC all 3 mesenteric vessels patent doubt this is related to diarrhea and bleeding this admission
== END 2018-05-13 11:50 | disposition home or self-care (01) ==
LOC: MEDSUR 03:29 → ED 03:29 → MEDSUR 16:00
PROVIDERS: ADMIT Internal Medicine; ATTEND Internal Medicine